=== PATIENT | male | born 1995 | race Caucasian/White ===

== ENCOUNTER 2021-06-09 23:20 | Emergency (ER) | payer OTHER, SELFPAY ==
[2021-06-09 23:25] VITALS: BP 141/73; PULSE 108; RESP 18; TEMP 36.6; O2SAT 98; BMI 29.9
--- NOTE | 2021-06-09 23:34 | ED_ITS ---
HPI - Wound/Laceration General: Chief Complaint: Wound/Laceration Stated Complaint: right hand cut from barbwire Time Seen by Provider: 06/09/21 23:24 History of Present Illness: Patient is a 26-year-old male who comes to the ED with laceration on Right hand. 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 Patient cut right hand on the bossman wire. He came directly here to the ED and did not clean laceration before coming to the ED. Patient says he is up-to-date on his tetanus. Associated symptoms: Denies chills, fever(s), nausea or vomiting Review of Systems Const: Denies: fever(s), chills or fatigue Eyes: Denies: change in vision or eye discomfort ENMT: Denies: throat pain, odynophagia, nasal discharge or nasal congestion Card: Denies: chest pain, palpitations, edema, swelling of feet/ankles, dys pnea on exertion or orthopnea Resp: Denies: dyspnea, productive cough or non-productive cough GI: Denies: abdominal pain, nausea, vomiting, diarrhea, constipation or hematochezia : Denies: flank pain, difficulty urinating, dysuria or hematuria Musc: Denies: neck pain, back pain or extremity swelling Skin/Breast: Reports: new lesions (laceration to left hand); Denies: rash Neuro: Denies: headache(s), numbness in extremities or weakness in extremities PFS ED PFSH: Medical History No pertinent family history Surgical History No pertinent past surgical history Physical Exam Const: COMMON NORMALS: no acute distress, patient oriented x3, healthy appearing and alert GENERAL APPEARANCE: cooperative and comfortable HENMT: COMMON NORMALS: normocephalic HEAD & SCALP: normocephalic MOUTH: Normal oral and palatal mucosa present THROAT: posterior oropharynx normal and uvula midline Neck/C-Spine: COMMON NORMALS: supple GENERAL: Yes normal visual inspection Resp: COMMON NORMALS: normal respiratory effort, No retractions, No use of accessory muscles and clear to auscultation bilaterally AUSCULTATION: clear to auscultation bilaterally Cardio: COMMON NORMALS: regular rate, regular rhythm, S1 normal heart sound present, S2 normal heart sound present, No gallops present (Cardio), No clicks present (Cardio), No murmurs present (Cardio) and Peripheral pulses 2+ throughout RATE: regular rate RHYTHM: regular rhythm HEART SOUNDS: S1 normal heart sound present and S2 normal heart sound present PERIPHERAL PULSES: Peripheral pulses 2+ throughout GI: COMMON NORMALS: Normal to inspection, nondistended, normoactive bowel sounds present, Soft to palpation, non-tender and no masses PALPATION: Yes Soft to palpation : COMMON NORMALS: Yes no CVA tenderness BLADDER/KIDNEY EXAM: Yes no CVA tenderness Back/Pelvis: COMMON NORMALS: no CVA tenderness Extremity: NARRATIVE EXTREMITY EXAM: Right hand?2 cm irregular shaped superficial laceration to third knuckle. She has full range of motion in hand and fingers. Neuro: COMMON NORMALS: patient oriented x3 and moves all extremities SENSORIUM/ORIENTATION: Yes alert Skin: NARRATIVE SKIN EXAM: Right hand?2 cm irregular shaped superficial laceration to third knuckle. She has full range of motion in hand and fingers. Procedures Laceration Laceration 1: Site: hand (dorsal aspect over 3rd digit knuckle) Size (cm): 2 Description: irregular and clean Depth: simple, single layer Local Anesthetic: lidocaine 1% Amount of anesthesia used (mL): 8 Pre-repair: irrigated extensively (With normal saline and beta iodine.) Skin layer closed with: nylon Size (cm): 4-0 Number of sutures: 8 Technique: simple, interrupted Course Vital Signs: Vital signs: Vital Signs Temperature 98 F 06/09/21 23:25 Pulse Rate 108 H 06/09/21 23:25 Respiratory Rate 18 06/09/21 23:25 Blood Pressure 141/73 06/09/21 23:25 Pulse Oximetry 98 06/09/21 23:25 MDM - Wound/Laceration Medical Decision Making Patient is a 26-year-old male comes to the ED with a right hand laceration. Patient cut hand on bossman wire while working out with his cattle. Laceration is irregular shaped superficial over dorsal aspect of third knuckle. Full range of motion in fingers. Patient is up-to-date on tetanus. Laceration site was irrigated extensively with normal saline and beta iodine. Lidocaine 1% was used as local. 8 sutures were placed to close laceration site. Patient was discharged home with a prescription for Keflex. He was told to have his sutures removed in 7 to 10 days. Return to ED precautions given. Patient understood and agreed with plan. Discharge Plan Discharge Patient Disposition: Home Clinical Impression: Hand laceration Qualifiers: Encounter type: initial encounter Foreign body presence: without foreign body Laterality: right Qualified Code(s): S61.411A - Laceration without foreign body of right hand, initial encounter Condition: Stable Prescriptions: New cephalexin 500 mg capsule 500 mg PO Q6H 4 Days Qty: 16 0RF Discharge Orders: Discharge ED (Routine); Ordered 06/09/21 Ordered By: Perry Cabrera Referrals: Samantha Nielsen MD [Physician] - Discharge Diet: Regular Discharge Activity: Increase activity as tolerated Patient Instructions: Laceration (ED) Activity Restrictions/Additional Instructions: Take full course of antibiotics as prescribed. Keep laceration site clean and dry for the next 24 hours. Then after that you can clean and re-bandage daily. Wash daily with soap and water. Apply triple antibiotic ointment and keep covered with bandage daily. Watch for signs of infection such as redness, warmth, increased tenderness and puslike drainage. If you see the signs of infection return to the ED, urgent care or PCP for reevaluation. call your PCP to schedule a follow-up appointment for reevaluation and suture removal in about 7- 10 days. Continue taking all home meds. Follow discharge plans as discussed. You can return to the ED if symptoms worsen. Coding Level of Care Code ED Hides Inspector for Kathleen Boyle Exam Comprehensive
[2021-06-09] MEDS: lidocaine 1% INJ 20 mL INJECTION (23:47)
[2021-06-10] MEDS: cephALEXin 500 mg Capsule PO (00:06)
[2021-06-10] MEDS: neomycin-poly-bacitracin oint 0.9 gm Pkt 1 APPLIC TOPICAL (00:06)
[2021-06-10 00:07] VITALS: BP 141/73; PULSE 108; RESP 18; TEMP 36.6; O2SAT 98
== END 2021-06-10 00:11 | disposition home or self-care (01) ==
PROVIDERS: Emergency Provider Physician Assistant
DX: S61.411A Laceration without foreign body of right hand, initial encounter (principal); W26.8XXA Contact with other sharp object(s), not elsewhere classified, initial encounter
CPT/HCPCS: 12001; 99283

== ENCOUNTER → 2023-01-20 17:14 | Outpatient (BNVA) | payer OTHER, SELFPAY | PROVIDERS: Visit Provider Family Medicine | DX: R39.9 Unspecified symptoms and signs involving the genitourinary system (principal); N45.1 Epididymitis | CPT/HCPCS: 81000 ==